=== PATIENT | male | born 1935 | race Caucasian/White ===

== ENCOUNTER → 2020-09-21 | Outpatient (CLI) | payer OTHER ==
[~2020-09-21] MED LIST: ASMANEX110 MCG INH; ENDOCET 7.5-321 EACH PO; FLONASE 0.05% N16 GM; LOSARTAN-HCTZ1 EACH PO; PROAIR HFA8.5 GM INH; PROTONIX40 MG PO; STIOLTO RESPIMAT 2.5 INH; XANAX XR0.5 MG PO
== END ==
LOC: US 09-13 16:00
DX: R22.1 Localized swelling, mass and lump, neck (principal)
CPT/HCPCS: 76536